=== PATIENT | male | born 1985 | race Caucasian/White ===

== ENCOUNTER 2018-07-10 14:16 | Outpatient (CLI) | payer OTHER ==
--- NOTE | 2018-07-14 10:15 | MRI Report ---
Procedure Date: 07/10/2018 Accession Number: [id number] / [id number] Procedure: MRI - Ankle LT W/O CPT Code: FULL RESULT: EXAM: LEFT ANKLE/HINDFOOT MRI WITHOUT CONTRAST EXAM DATE: 07/10/2018 03:21 PM. CLINICAL HISTORY: Pain in left foot. COMPARISON: None. TECHNIQUE: Multiplanar, multisequence T1-weighted and fluid-sensitive sequences of the ankle/hindfoot without contrast. Other: None. FINDINGS: Bones: There is some marrow edema in the posterior malleolus without fracture. No other areas of marrow abnormality. Articular Cartilage: Unremarkable. Ligaments: Full-thickness tear of the anterior band of the inferior tibiofibular ligament. Syndesmosis also is not well seen and is probably at least partially torn. Posterior band of the inferior tibiofibular ligament shows significant type I signal change. Series 801 image 25. Anterior talofibular, posterior talofibular and calcaneofibular ligaments appear intact. The deep and superficial deltoid and spring ligaments are intact. Anterior Tendons: The tibialis anterior, extensor hallucis longus, and extensor digitorum longus tendons are unremarkable. Medial Tendons: The tibialis posterior, flexor digitorum longus, and flexor hallucis longus tendons are unremarkable. Lateral Tendons: The peroneus brevis and longus are unremarkable. Achilles Tendon: The Achilles tendon is unremarkable. Musculature: No edema or fatty atrophy. Other: No effusions. The contents of the sinus tarsi and tarsal tunnel are unremarkable. No plantar fasciitis. The subcutaneous tissues are unremarkable. IMPRESSION: 1. Full-thickness tear of the anterior band of the inferior tibiofibular ligament, syndesmosis may also be torn. There is significant type I signal change at the posterior band of the inferior tibiofibular ligament. 2. Anterior talofibular, calcaneofibular and posterior talofibular ligaments are normal. 3. Medial collateral ligament complex also unremarkable. 4. Some edema but no fracture seen at the posterior malleolus. No other areas of bone marrow abnormality. 5. Tendons of plantar flexion and anteflexion appear intact. Plantar fascia also is unremarkable. [facility] MUSCULOSKELETAL RADIOLOGY SECTION
== END 2018-07-10 14:17 | disposition home or self-care (01) ==
LOC: DI 14:16
PROVIDERS: ATTEND Physician Assistant
DX: S93.432A Sprain of tibiofibular ligament of left ankle, initial encounter (principal); M79.672 Pain in left foot

== ENCOUNTER 2019-03-28 00:40 | Emergency (ER) | payer OTHER ==
[2019-03-28 00:49] VITALS: BP 110/85
--- NOTE | 2019-03-28 01:03 | ED Physician Documentation ---
History of Present Illness - Stated complaint Stated Complaint: THROAT PX - Chief complaint Chief Complaint: Heent - History obtained from History obtained from: Patient - Additonal information Additional information: Patient is a previously healthy 33-year-old male presenting with sore throat over the past several days.Patient has taken Tylenol with some relief. Patient denies ear pain or drainage, nasal congestion or rhinorrhea, fever, difficulty swallowing, or difficulty breathing. Patient also denies changes to face such as erythema, swelling or pain. Patient also denies any tooth complaints. Otherwise, patient denies any improving or worsening factors to his symptoms. Review of Systems Constitutional: denies: Fever Ears: denies: Ear pain Nose: denies: Rhinorrhea / runny nose Throat: reports: Sore throat PD PAST MEDICAL HISTORY - Past Medical History Past Medical History: No - Past Surgical History Past Surgical History: No - Present Medications Home Medications: Ambulatory Orders Medication Instructions Recorded Confirmed No Known Home Medications 03/28/19 03/28/19 - Allergies Allergies/Adverse Reactions: Allergies Allergy/AdvReac Type Severity Reaction Status Date / Time Sulfa (Sulfonamide Allergy Unknown Verified 03/28/19 00:49 Antibiotics) PD ED PE NORMAL - General General: Alert and oriented X 3, No acute distress, Well developed/nourished - HEENT HEENT: Atraumatic, Ears normal (Left TM nonbulging, nonerythematous without effusion), Pharynx benign (No tonsillar swelling, erythema, exudate. No uvulitis, uvula deviation, or peritonsillar abscess), Dentition benign - Respiratory Respiratory: No respiratory distress - Derm Derm: Normal color, Warm and dry, No rash - Extremities Extremities: No deformity, No tenderness to palpate - Neuro Neuro: Alert and oriented X 3, No motor deficit, No sensory deficit - Psych Psych: Normal mood, Normal affect Results - Vitals Vitals: Vital Signs - 24 hr 03/28/19 00:44 Temperature 36.4 C L Heart Rate 90 Respiratory 17 Rate Blood Pressure 110/85 H O2 Saturation 99 Oxygen O2 Source Room air - Labs Labs: Laboratory Tests 03/28/19 01:02 Group A Strep Rapid POSITIVE H PD MEDICAL DECISION MAKING - ED course Complexity details: considered differential, d/w patient ED course: Most likely viral illness causing sore throat as do not find evidence of strep throat, tonsillitis, pharyngitis, peritonsillar abscess. Additionally, have low suspicion for dental abscess, facial abscess, or other ear issues such as otitis media or externa. Do not find evidence to indicate mastoiditis. At this time, do not feel patient requires other invasive testing or imaging. Discussed supportive cares, return precautions, and appropriate follow-up. Patient voiced understanding and was comfortable with discharge plan. Departure - Departure Disposition: 01 Home, Self Care Clinical Impression: Sore throat Condition: Good Instructions: ED Pharyngitis Viral Follow-Up: DAYANA ROBLEDO [Primary Care Provider] - Within 3 Days Comments: Recommend use of Advil, Tylenol, or Excedrin as needed to help reduce discomfort. Also recommend salt water gargles or Listerine gargles, as well as good oral hygiene. Please follow-up with your primary care physician in the next 2 to 3 days and return to ED sooner if experience worsening symptoms or other concerns. Discharge Date/Time: 03/28/19 01:30
== END 2019-03-28 01:30 | disposition home or self-care (01) ==
LOC: ED 00:40
DX: J02.9 Acute pharyngitis, unspecified (principal)
CPT/HCPCS: 87430; 99282; 99283